=== PATIENT | female | born 1955 | race Caucasian/White ===

== ENCOUNTER → 2023-11-20 | Emergency (ER) | payer OTHER ==
[~2023-11-20] MED LIST: AMOX/K CLAV 875 MG TAB ONE; BACI/NEOMYCIN/POLY OINT 15GM TOP ONE; ONDANSETRON 4 MG (ODT) TAB ONE; TDAP (DIPHTH,PERTUSS(ACELL),TET VAC) 0.5 ML VIAL IMVAC ONE
--- OUTSIDE RECORDS SUMMARY | 2023-11-20 20:56 | XMS REPORT | Continuity of Care Document ---
Author Name Unknown Address [address] [place] [address] [facility]connect Address 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 Phone PCP, PATIENT DOES NOT HAVE A Primary Care Physic kassandra Unavailable Yara Leyva Attending Clinician [phone] Blessing Little Attending Clinician + [phone] Samir Martinez Attending Clinician [phone] Chayo Knapp Attending Clinician [phone] CHAYO MILLER Attending Clinician Unavailable Doctor Unassigned, [place] Attending Clinician U navailable Payers Payer Name Policy Type Policy Number Effective Date Expirati on Date Source Problems Condition Name Condition Details Condition Category Status Onset Date Resolution Date Last Treatment Date Treating Clinician Comments Source No known active problems No known active problems Disease [facility] Allergies, Adverse Reactions, Alerts Allergy Name Allergy Type Status Severity Reaction(s) Onset Date Inactive Date Treating Clinician Comments Source Penicill ins Propensi ty to adverse reaction s Active Hives 06-01 00:00: 00 [facility] PENICILL INS Drug Class Active Hives 06-01 00:00: 00 [facility] NO KNOWN ALLERGIE S Drug Class Active [facility] Social History Social Habit Start Date Stop Date Quantity Comments Source Exposure to SARS-CoV-2 (event) Not sure [facility] Tobacco use and exposure 2021-08-20 00:00:00 2021-08-20 00:00:00 Never used [facility] Sex Assigned At 1955 00:00:00 1955 00:00:00 [facility] Smoking Status Start Date Stop Date Source Unknown if ever smoked [facility] Never smoker [facility] Medications Ordered Medication Name Filled Medication Name Start Date Stop Date Current Medication? Ordering Clinician Indication Dosage Frequency Signature (SIG) Comments Components Source fluticasone propionate 50 mcg/actuati on nasal spray 2020-09 00:00: 00 Yes [id number] 1{spray } Use 1 [place] in each nostril daily. [facility] azithromyci n (ZITHROMAX Z-ASHA) 250 mg tablet 2020-09 00:00: 00 Yes [id number] 500 mg day 1, then 250 mg days 2-5. [facility] benzonatate (TESSALON PERLES) 100 mg capsule 2020-09 00:00: 00 09-05 05:59 :00 No [id number] 100mg Take 1 capsule by mouth 3 (three) times daily for 15 days. [facility] methocarbam oL (ROBAXIN-75 0) 750 mg tablet 06-01 00:00: 00 06-12 04:59 :00 No [id number] 750mg Take 1 tablet by mouth 4 (four) times daily for 10 days. [facility] meloxicam (MOBIC) 15 mg tablet 06-01 00:00: 00 06-12 04:59 :00 No [id number] 15mg Take 1 tablet by mouth daily for 10 days. [facility] methocarbam oL (ROBAXIN-75 0) 750 mg tablet 06-01 00:00: 00 06-12 04:59 :00 No [id number] 750mg Take 1 tablet by mouth 4 (four) times daily for 10 days. [facility] meloxicam (MOBIC) 15 mg tablet 06-01 00:00: 00 06-12 04:59 :00 No [id number] 15mg Take 1 tablet by mouth daily for 10 days. [facility] metoprolol succinate XL 25 mg 24 hr tablet 2019-09 00:00: 00 Yes [facility] Vital Signs Vital Name Observation Time Observation Value Balbina soto Systolic blood pressure 2021-06-01 19:23:00 146 mm[Hg] [facility] Diastolic blood pressure 2021-06-01 19:23:00 82 mm[Hg] [facility] Heart rate 2021-06-01 19:21:00 96 /min [facility] Body temperature 2021-06-01 19:21:00 36.67 Lynn [facility] Respiratory rate 2021-06-01 19:21:00 16 /min [facility] Body height 2021-06-01 19:21:00 157.5 cm [facility] Body weight 2021-06-01 19:21:00 72.576 kg [facility] BMI 2021-06-01 19:21:00 29.26 kg/m2 [facility] Oxygen saturation in Arterial blood by Pulse oximetry 2021-06-01 19:21:00 98 /min [facility] Procedures Procedure Date / Time Performed Performing Clinicia n Source POCT URINALYSIS 2021-06-01 20:21:00 Samir Morgan [facility] ASSIGNMENT OF BENEFITS 2021-06-01 19:15:07 Docto r Unassigned, [place] [facility] Encounters Start Date/Time End Date/Time Encounter Type Admission Type Attending Clinicians Care Facility Care Department Encounter ID Source 2021-08-20 12:41:46 2021-08-20 13:01:46 Urgent Care Yara Villa Kimberly J [facility] [id number] [facility] 2021-08-20 12:40:00 2021-08-20 12:40:00 Outpatient R [facility] [id number] [facility] 2021-08-20 12:40:00 2021-08-20 12:40:00 Outpatient Lenin SREE VILLAI [facility] [id number] [facility] 2021-06-08 00:00:00 2021-06-08 00:00:00 Refill [facility]ir [facility] [id number] [facility] 2021-06-01 14:15:58 2021-06-01 15:38:24 Urgent Care Samir Morgan Jose Alberto [facility] [id number] [facility] 2021-06-01 14:20:00 2021-06-01 14:20:00 Outpatient Lenin MILLER CHAYO [facility] [id number] [facility] 2021-06-01 00:00:00 2021-06-01 00:00:00 Orders Only Doctor Unassigned, [place] [facility] [id number] [facility] Results Test Description Test Time Test Comments Results Result Co mments Source [facility]
--- NOTE | 2023-11-20 22:26 | RAD REPORT ---
EXAM DESCRIPTION: CT - Head C Spine Mpr Wo Con - 11/20/2023 10:02 pm CLINICAL HISTORY: Head and neck injury status post fall. Head and neck pain COMPARISON: None. TECHNIQUE: Computed axial tomography of the head and cervical spine was obtained. Sagittal and coronal reconstruction was performed. All CT scans are performed using dose optimization technique as appropriate and may include automated exposure control or mA/KV adjustment according to patient size. FINDINGS: Left frontal scalp hematoma An intracranial bleed is not seen. The ventricles are normal in caliber. No significant hypodensity within the brain. An extra-axial fluid collection is not noted. Fluid within the visualized sinuses and mastoids is not seen A cervical fracture is not visualized. No dislocation is noted. Mild anterior subluxation C2 on C3 Mild anterior subluxation C4 on C5. Mild posterior subluxation C5 on C6. Significant prevertebral soft tissue not visualized so this presumably is chronic. IMPRESSION: No acute intracranial abnormality is seen. A cervical fracture is not visualized. If the patient continues to have symptoms to suggest intracranial /spinal cord/ligamentous pathology then MRI would be recommended
--- NOTE | 2023-11-20 22:26 | RAD REPORT ---
EXAM DESCRIPTION: CT - Facial Bones W/ Mpr - 11/20/2023 10:02 pm CLINICAL HISTORY: Facial injury with pain COMPARISON: None TECHNIQUE: Computed axial tomography of the face was obtained. Coronal and sagittal reconstruction w as performed. All CT scans are performed using dose optimization technique as appropriate and may include automated exposure control or mA/KV adjustment according to patient size. FINDINGS: Left frontal scalp swelling. Tiny radiopaque density within the left frontal scalp Mildly depressed nasal bone fracture. Deviation nasal septum towards the left A TMJ dislocation is not noted. The globes are intact. Fluid within the sinuses is not seen. IMPRESSION: Mildly depressed nasal bone fracture
--- NOTE | 2023-11-20 22:35 | EDPHYS ---
Physician Documentation [facility] Name: Jacey Avery Age: 68 yrs Sex: Female : 1955 Arrival Date: 11/20/2023 Time: 20:53 Bed 12 Private MD: ED Physician Omer Lemons HPI: 11/19 21:13 This 68 yrs old Female presents to ER via Ambulatory with complaints of Fall sp4 Injury, Face Injury. 22:24 68-year-old female presents with acute fall after stumbling and facial injury against a sp4 rock outside. Patient has left forehead contusion left forehead hematoma also bridge of the nose injury with abrasion to the nose. Denied loss of consciousness and vomiting.. Historical: - Allergies: 21:12 No Known Allergies; tl4 - Home Meds: 21:12 Lumigan ophthalmic (eye) [Active]; metoprolol succinate oral [Active]; tl4 - PMHx: 21:12 Tachycardia; tl4 - Immunization history:: Adult Immunizations unknown. - Social history:: Smoking status: Patient denies any tobacco usage or history of. - Family history:: not pertinent. ROS: 22:24 Constitutional: Negative for fever, chills, and weight loss, positive facial injury sp4 positive head injury positive for nasal injury. 22:24 All other systems are negative, Exam: 22:24 Constitutional: This is a well developed, well nourished patient who is awake, alert, sp4 and in no acute distress. Head/Face: Normocephalic, positive forehead hematoma positive forehead abrasion positive nasal injury and bridge of nose abrasion Eyes: Pupils equal round and reactive to light, extra-ocular motions intact. Lids and lashes normal. Conjunctiva and sclera are not injected. Cornea within normal limits. Periorbital areas with no swelling, redness, or edema. ENT: Nares patent. No nasal discharge, no septal abnormalities noted. Tympanic membranes are normal and external auditory canals are clear. Oropharynx with no redness, swelling, or masses, exudates, or evidence of obstruction, uvula midline. Mucous membranes moist. Neck: Trachea midline, no thyromegaly or masses palpated, and no cervical lymphadenopathy. Supple, full range of motion without nuchal rigidity, or vertebral point tenderness. Chest/axilla: Normal chest wall appearance and motion. Nontender with no deformity. No lesions are appreciated. Cardiovascular: Regular rate and rhythm with a normal S1 and S2. No gallops, murmurs, or rubs. Normal PMI, no JVD. No pulse deficits. Respiratory: Lungs have equal breath sounds bilaterally, clear to auscultation and percussion. No rales, rhonchi or wheezes noted. No increased work of breathing, no retractions or nasal flaring. Abdomen/GI: Soft, with normal bowel sounds. No distension or tympany. No guarding or rebound. No evidence of tenderness throughout. Back: No spinal tenderness. No costovertebral tenderness. Skin: Warm, dry with normal turgor. Normal color with no rashes, no lesions, and no evidence of cellulitis. MS/ Extremity: Pulses equal, no cyanosis. Neurovascular intact. Full, normal range of motion. Neuro: Awake and alert, GCS 15, oriented to person, place, time, and situation. Cranial nerves II-XII grossly intact. Motor strength 5/5 in all extremities. Sensory grossly intact. Psych: Awake, alert, with orientation to person, place and time. Behavior, mood, and affect are within normal limits Vital Signs: 21:07 BP 173 / 113; Pulse 111; Resp 19; Temp 98.4; Pulse Ox 99% on R/A; Weight 72.57 kg; tl4 Height 5 ft. 2 in. ; Pain 4/10; 03 00:17 BP 149 / 77; Pulse 89; Resp 16; Temp 97.9(O); Pulse Ox 99% on R/A; Pain 5/10; tl4 03 21:07 Body Mass Index 29.26 (72.57 kg, 157.48 cm) tl4 03 21:07 Pain Scale: Adult tl4 03/ 00:17 Pain Scale: Adult tl4 [place] Coma Score: 00:17 Eye Response: spontaneous(4). Motor Response: obeys commands(6). Verbal Response: tl4 oriented(5). Total: 15. MDM: 11/19 21:29 Patient medically screened. sp4 22:28 ED course: EXAM DESCRIPTION: CT - Head C Spine Mpr Wo Con - 11/20/2023 10:02 pm CLINICAL sp4 HISTORY: Head and neck injury status post fall. Head and neck pain COMPARISON: None. TECHNIQUE: Computed axial tomography of the head and cervical spine was obtained. Sagittal and coronal reconstruction was performed. All CT scans are performed using dose optimization technique as appropriate and may include automated exposure control or mA/KV adjustment according to patient size. FINDINGS: Left frontal scalp hematoma An intracranial bleed is not seen. The ventricles are normal in caliber. No significant hypodensity within the brain. An extra-axial fluid collection is not noted. Fluid within the visualized sinuses and mastoids is not seen A cervical fracture is not visualized. No dislocation is noted. Mild anterior subluxation C2 on C3 Mild anterior subluxation C4 on C5. Mild posterior subluxation C5 on C6. Significant prevertebral soft tissue not visualized so this presumably is chronic. IMPRESSION: No acute intracranial abnormality is seen. A cervical fracture is not visualized. If the patient continues to have symptoms to suggest intracranial /spinal cord/ligamentous pathology then MRI would be recommended . ED course: EXAM DESCRIPTION: CT - Facial Bones W/ Mpr - 11/20/2023 10:02 pm CLINICAL HISTORY: Facial injury with pain COMPARISON: None TECHNIQUE: Computed axial tomography of the face was obtained. Coronal and sagittal reconstruction was performed. All CT scans are performed using dose optimization technique as appropriate and may include automated exposure control or mA/KV adjustment according to patient size. FINDINGS: Left frontal scalp swelling. Tiny radiopaque density within the left frontal scalp Mildly depressed nasal bone fracture. Deviation nasal septum towards the left A TMJ dislocation is not noted. The globes are intact. Fluid within the sinuses is not seen. IMPRESSION: Mildly depressed nasal bone fracture. 22:36 Differential diagnosis: abrasion, closed head injury, contusion, fracture, laceration, sp4 multiple trauma. Data reviewed: vital signs, nurses notes, radiologic studies, CT scan. Consideration of Admission/Observation Escalation of care including admission/observation considered. ED course: Patient has apparently mildly depressed nasal bone fracture. Deviation nasal septum towards the left slightly, mildly depressed nasal bone fracture. Cosmetically nose appears not deformed. Will prescribe Augmentin for next 10 days also will advised to see ENT in 7 to 10 days for repeat evaluation. Will administer tetanus shot in ER. Secondary to abrasion to nasal bridge. . 11/19 21:28 Order name: CT Facial Bones W/O Con sp4 11/19 21:28 Order name: CT Head C Spine sp4 Administered Medications: 22:55 Drug: Tetanus-Diphtheria Toxoid IM Adult 0.5 ml IM once; Provide Vaccine Information tl4 Statement (VIS). 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[employer]; Exp: SatSep 28 2025; Lot #: [id number]; Series: 1 of 1; Patient Consent: Obtained; Date/Time: ; Source Name: Jacey Avery; Source Relationship: Self; Address Information: [address] [place] [address]; ; Education: Provided; VIS Presented Date: ; VIS Publication: Tetanus/Diphtheria (Td) Vaccine VIS 12/25/2016 (historic)} {Note: VIS date 04/21/2021.} Route: IM; Site: left deltoid; 11/20 00:16 Follow up: Response: No adverse reaction tl4 00:13 Drug: Amoxicillin-Clavulanate PO 875 mg PO once Route: PO; tl4 00:16 Follow up: Response: No adverse reaction tl4 00:14 Drug: Crzcziar-Kgubcecycv-Jkrbexuok Topical Ointment 1 application Topical once Route: tl4 Topical; Site: affected area; 00:16 Follow up: Response: No adverse reaction tl4 00:14 Drug: Ondansetron PO 4 mg PO once Route: PO; tl4 00:16 Follow up: Response: No adverse reaction tl4 Disposition Summary: 11/20/23 22:34 Discharge Ordered Problem: new sp4 Symptoms: have improved sp4 Condition: Stable sp4 Diagnosis - Fracture of nasal bones sp4 - Acute facial injury, left periorbital contusion, left forehead abrasion, nasal sp4 abrasion, displaced nasal bone fracture Followup: sp4 - With: Aster Keller MD - When: 7 - 10 days - Reason: Recheck today's complaints Discharge Instructions: - Discharge Summary Sheet sp4 - Nasal Fracture, [facility] sp4 Forms: - Patient Portal Instructions sp4 Prescriptions: - Augmentin 875-125 mg Oral Tablet - take 1 tablet ORAL route every 12 hours for 10 days; 20 tablet; Refills: 0, sp4 Product Selection Permitted Signatures: Dispatcher [employer] Omer Balderas MD MD sp4 Jacky Gonzalez RN RN tl4 Corrections: (The following items were deleted from the chart) 11/19 21:14 21:12 PMHx: Hypertensive disorder; tl4 tl4
--- NOTE | 2023-11-20 22:35 | ER ---
Nurse's Notes [facility] Name: Jacey Avery Age: 68 yrs Sex: Female : 1955 Arrival Date: 11/20/2023 Time: 20:53 Bed 12 Private MD: Diagnosis: Fracture of nasal bones;Acute facial injury, left periorbital contusion, left forehead abrasion, nasal abrasion, displaced nasal bone fracture Presentation: 11/19 21:07 Chief complaint: Patient states: Pt states she tripped over [employer] and fell striking her tl4 face on a landscape rock. Pt denies LOC. Pt has swelling and discoloration over left eye, swelling to nose. Coronavirus screen: At this time, the client does not indicate any symptoms associated with coronavirus-19. Ebola Screen: No symptoms or risks identified at this time. Initial Sepsis Screen: Does the patient meet any 2 criteria? No. Patient's initial sepsis screen is negative. Does the patient have a suspected source of infection? No. Patient's initial sepsis screen is negative. Risk Assessment: Do you want to hurt yourself or someone else? Patient reports no desire to harm self or others. Onset of symptoms was November 20, 2023 at 20:00. 21:07 Method Of Arrival: Ambulatory tl4 21:07 Acuity: SARAH 3 tl4 Triage Assessment: 21:14 General: Appears uncomfortable, Behavior is calm, cooperative. Pain: Complains of pain tl4 in face. EENT: No signs and/or symptoms were reported regarding the EENT system. Neuro: No deficits noted. Cardiovascular: No deficits noted. Respiratory: No deficits noted. GI: No deficits noted. No signs and/or symptoms were reported involving the gastrointestinal system. : No deficits noted. No signs and/or symptoms were reported regarding the genitourinary system. Derm: No deficits noted. No signs and/or symptoms reported regarding the dermatologic system. Musculoskeletal: Swelling present in face. 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 - Social history:: Smoking status: Patient denies any tobacco usage or history of. - Family history:: not pertinent. Screenin/07 00:17 [facility] ED Fall Risk Assessment (Adult) History of falling in the last 3 months, tl4 including since admission Yes- single mechanical fall (1 pt) Confusion or Disorientation No (0 pts) Intoxicated or Sedated No (0 pts) Impaired Gait No (0 pts) Mobility Assist Device Used No (0 pt) Altered Elimination No (0 pt) Score/Fall Risk Level 0 - 2 = Low Risk Oriented to surroundings, Maintained a safe environment, Educated pt \T\ family on fall prevention, incl call for assistance when getting out of bed, Assessed \T\ reinforced patient's understanding of fall precautions, Provided non-skid footwear, Hourly rounding (assess needs \T\ fall precautionary measures) done, Used ambulatory aids as needed (educated on \T\ assisted with), Used gait belt as appropriate. Abuse screen: Denies threats or abuse. Denies injuries from another. Nutritional screening: No deficits noted. Tuberculosis screening: No symptoms or risk factors identified. Assessment: 00:16 Reassessment: Patient and/or family updated on plan of care and expected duration. Pain tl4 level reassessed. Patient is alert, oriented x 3, equal unlabored respirations, skin warm/dry/pink. Vital Signs: 11/19 21:07 BP 173 / 113; Pulse 111; Resp 19; Temp 98.4; Pulse Ox 99% on R/A; Weight 72.57 kg; tl4 Height 5 ft. 2 in. ; Pain 4/10; 03 00:17 BP 149 / 77; Pulse 89; Resp 16; Temp 97.9(O); Pulse Ox 99% on R/A; Pain 5/10; tl4 11/19 21:07 Body Mass Index 29.26 (72.57 kg, 157.48 cm) tl4 11/19 21:07 Pain Scale: Adult tl4 03 00:17 Pain Scale: Adult tl4 [place] Coma Score: 00:17 Eye Response: spontaneous(4). Motor Response: obeys commands(6). Verbal Response: tl4 oriented(5). Total: 15. ED Course: 11/19 20:59 Patient arrived in ED. ae5 21:11 Triage completed. tl4 21:13 Omer Lemons MD is Attending Physician. sp4 21:15 Arm band placed on left wrist. tl4 22:04 CT Facial Bones W/O Con In Process Unspecified. EDMS 22:04 CT Head C Spine In Process Unspecified. EDMS 22:33 Aster Keller MD is Referral Physician. sp4 07 00:18 Patient has correct armband on for positive identification. Bed in low position. Call tl4 light in reach. Side rails up X 1. Adult w/ patient. Provided Education on: ed process. 00:18 No provider procedures requiring assistance completed. Patient did not have IV access tl4 during this emergency room visit. Administered Medications: 11/19 22:55 Drug: Tetanus-Diphtheria Toxoid IM Adult 0.5 ml IM once; Provide Vaccine Information tl4 Statement (VIS). 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[employer]; Exp: SatSep 28 2025; Lot #: [id number]; Series: 1 of 1; Patient Consent: Obtained; Date/Time: ; Source Name: Jacey Avery; Source Relationship: Self; Address Information: [address] [place] [address]; ; Education: Provided; VIS Presented Date: ; VIS Publication: Tetanus/Diphtheria (Td) Vaccine VIS 12/25/2016 (historic)} {Note: VIS date 04/21/2021.} Route: IM; Site: left deltoid; 11/20 00:16 Follow up: Response: No adverse reaction tl4 00:13 Drug: Amoxicillin-Clavulanate PO 875 mg PO once Route: PO; tl4 00:16 Follow up: Response: No adverse reaction tl4 00:14 Drug: Gbulcqdp-Ivbiovxxis-Dsdgbwdts Topical Ointment 1 application Topical once Route: tl4 Topical; Site: affected area; 00:16 Follow up: Response: No adverse reaction tl4 00:14 Drug: Ondansetron PO 4 mg PO once Route: PO; tl4 00:16 Follow up: Response: No adverse reaction tl4 Medication: 00:19 Vaccine Information Statement (VIS) provided today. Questions and/or concerns tl4 addressed. VIS edition date: April 21, 2021. Outcome: 11/19 22:34 Discharge ordered by . sp4 11/20 00:18 Discharged to home ambulatory, with family, tl4 Condition: stable Discharge instructions given to patient, family, Instructed on discharge instructions, follow up and referral plans. medication usage, Demonstrated understanding of instructions, follow-up care, medications, Prescriptions given X 1, 00:19 Patient left the ED. tl4 Signatures: Dispatcher [employer] EDMS Omer Lemons MD MD sp4 Jacky Gonzalez RN RN tl4 Fatou Clinton ae5 Corrections: (The following items were deleted from the chart) 11/19 21:14 21:12 PMHx: Hypertensive disorder; tl4 tl4
[2023-11-21 01:04] VITALS: BP 149/77; TEMP 97.9; O2SAT 99
== END ==
LOC: ER 20:53
DX: S02.2XXA Fracture of nasal bones, initial encounter for closed fracture (principal); S00.81XA Abrasion of other part of head, initial encounter; S00.12XA Contusion of left eyelid and periocular area, initial encounter; W01.118A Fall on same level from slipping, tripping and stumbling with subsequent striking against other sharp object, initial encounter; Z23 Encounter for immunization
CPT/HCPCS: 70450; 72125; 70486; 76377; Q0162; 90471; 99284